=== PATIENT | female | born 1985 ===

== ENCOUNTER → 2023-07-25 | Outpatient (CLI) | payer OTHER ==
[~2023-07-25] MED LIST: BC PILLS; CEPH500 PO; CIPR500 PO; CYCL10 PO; HYDACE5 PO; IBUP800 PO; LEVFLO500 PO; PERM5TC TOP; PHENA200 PO
[2023-07-25 13:10] LABS: Source, Urine Clean Catch
[2023-07-25 15:37] LABS: Appearance, Urine Hazy (Clear); Bilirubin, Urine Neg (Neg); Blood, Urine 4+ (Neg); Color, Urine Yellow (P-Yellow); Glucose Qualitative, Urine Neg (Neg); Ketones, Urine Neg (Neg); Leukocyte Esterase, Urine Neg (Neg); Nitrite, Urine Neg (Neg); Protein, Urine 1+ (Neg); Urobilinogen, Urine NORM (Normal)
[2023-07-25 16:08] LABS: Bacteria Many /hpf; Mucus Light (0-Heavy); Red Blood Cells, Urine 0-2 /hpf (0-2); Squamous Epithelial Cells Many /hpf (Few)
== END | disposition home or self-care (01) ==
LOC: LAB 13:09 → LAB SHORT 13:09
PROVIDERS: Obstetrics & Gynecology
DX: Z01.812 Encounter for preprocedural laboratory examination (principal)
CPT/HCPCS: 81001; 87077; 87086; 87186

== ENCOUNTER 2023-07-31 14:16 | Day surgery (SDC) | payer OTHER ==
[~2023-07-31] VITALS: Ht 157.5 cm; Wt 112.5 kg
[2023-07-31] MEDS ORDERED: LABE100 PO (14:43)
[2023-07-31] MEDS ORDERED: ESCI10 PO (14:44)
[2023-07-31] MEDS ORDERED: METF500 PO (14:44)
[2023-07-31] MEDS ORDERED: PROP50 PO (14:45)
--- NOTE | 2023-07-31 16:37 | NUR ---
07/31/23 1637 Brandyn Hendricks NORMAL SALINE FLUID DEFICIT OF 250 MLS NOTED ON MYOSURE. [address] NOTIFIED. OK PER DR DIAZ.
--- NOTE | 2023-07-31 17:18 | NUR ---
07/31/23 1718 Sandy Mena IV OUT, WNL, PT TOLERATED WELL
[2023-07-31 17:19] VITALS: BP 156/94
== END 2023-07-31 17:16 | disposition home or self-care (01) ==
LOC: ORSCSDS 14:16
PROVIDERS: Obstetrics & Gynecology
PROC: 0UDB8ZX Extraction of Endometrium, Via Natural or Artificial Opening Endoscopic, Diagnostic (ICD-10-PCS; principal; 2023-07-31 15:30)
DX: N84.0 Polyp of corpus uteri (principal); I10 Essential (primary) hypertension; E11.9 Type 2 diabetes mellitus without complications; E66.9 Obesity, unspecified; Z68.42 Body mass index [BMI] 45.0-49.9, adult; Z79.899 Other long term (current) drug therapy
CPT/HCPCS: 82947; 88305; A9270; J1100; J1885; J2250; J2405; J2704; J3010

== ENCOUNTER 2024-08-15 08:35 | Emergency (ER) | payer OTHER ==
[~2024-08-15] VITALS: Ht 157.5 cm; Wt 90.7 kg
[~2024-08-15 08:35] MED LIST changes: +ESCI10 PO; +LABE100 PO; +METF500 PO; +PROP50 PO
[2024-08-15 08:56] VITALS: BP 161/112
[2024-08-15 09:30] LABS: BASOPHILS ABSOLUTE AUTO 0.05 K/mm3 (0.00-0.23); BASOPHILS PERCENT AUTO 1 % (0-2); EOSINOPHILS PERCENT AUTO 5 % (0-6); Hematocrit 38.8 % (33.0-51.0); Hemoglobin 12.1 g/dL (11.5-16.0); IMMATURE GRAN ABSOLUTE AUTO 0.02 K/mm3 (0.00-0.10); IMMATURE GRAN PERCENT AUTO 0 % (0-1); LYMPHOCYTES ABSOLUTE AUTO 1.89 K/mm3 (0.84-5.20); LYMPHOCYTES PERCENT AUTO 29 % (21-46); MONOCYTES ABSOLUTE AUTO 0.46 K/mm3 (0.16-1.47); MONOCYTES PERCENT AUTO 7 % (4-13); Mean Corpuscular HGB 22.9 pg (26.0-34.0); Mean Corpuscular HGB Conc 31.2 g/dL (31.5-36.5); Mean Corpuscular Volume 74 fL (80-100); Mean Platelet Volume 9.1 fL (9.1-12.4); NEUTROPHILS ABSOLUTE AUTO 3.86 K/mm3 (1.96-9.15); NEUTROPHILS PERCENT AUTO 59 % (41-73); Platelet Count 283 K/mm3 (150-400); RDW Coefficient Variation 17.1 % (11.7-14.2); RDW Standard Deviation 44.8 fL (35.1-46.3); Red Blood Cell Count 5.28 M/mm3 (3.80-5.20); White Blood Cell Count 6.58 K/mm3 (4.00-11.30)
[2024-08-15] MEDS ORDERED: Rho(D) Immune Globulin 300 MCG / SYR IM ONE (10:00)
[2024-08-15 10:03] LABS: Albumin, Blood 3.5 g/dL (3.4-5.0); Bilirubin, Total 0.4 mg/dL (0.1-1.0); Bun/Creatinine Ratio 18.3 (12.0-20.0); Calcium, Blood 8.3 mg/dL (8.5-10.1); Creatinine, Blood 0.65 mg/dL (0.40-1.00); Globulin, Blood 3.6 g/dL (2.2-4.0); Potassium, Blood 3.4 mmol/L (3.5-5.5); Total Protein, Blood 7.1 g/dL (6.4-8.2)
== END 2024-08-15 11:27 | disposition home or self-care (01) ==
LOC: ER 08:35
PROVIDERS: Student in an Organized Health Care Education/Training Program
DX: O03.9 Complete or unspecified spontaneous abortion without complication (principal); F41.9 Anxiety disorder, unspecified; Z79.84 Long term (current) use of oral hypoglycemic drugs; Z79.899 Other long term (current) drug therapy
CPT/HCPCS: 76801; 76817; 80053; 84702; 85025; 86900; 86901; 96372; 99284-25; J2791

== ENCOUNTER → 2024-11-09 | Outpatient (CLI) | payer OTHER ==
[2024-11-17 11:37] LABS: HPV HIGH RISK BY TMA Not Detected; HPV SOURCE Cervical
== END ==
LOC: LAB SHORT 16:04 → LAB 16:04
PROVIDERS: Advanced Practice Midwife
DX: Z01.419 Encounter for gynecological examination (general) (routine) without abnormal findings (principal)
CPT/HCPCS: 87624; G0123

== ENCOUNTER 2025-05-19 02:52 | Day surgery (SDC) | payer OTHER ==
[~2025-05-19 02:52] MED LIST changes: +INSULANI SC
[2025-05-19] MEDS ORDERED: Lidocaine HCl 4% Cream 5 GM ONE (09:35)
== END 2025-05-19 23:00 | disposition home or self-care (01) ==
LOC: WOUND 02:52
DX: S31.103A Unspecified open wound of abdominal wall, right lower quadrant without penetration into peritoneal cavity, initial encounter (principal); X58.XXXA Exposure to other specified factors, initial encounter; I10 Essential (primary) hypertension; Z87.891 Personal history of nicotine dependence; Z98.890 Other specified postprocedural states; Z90.49 Acquired absence of other specified parts of digestive tract
CPT/HCPCS: A6213; A9270; G0463

== ENCOUNTER 2025-05-24 00:57 | Day surgery (SDC) | payer OTHER ==
[2025-05-24] MEDS ORDERED: Lidocaine HCl 4% Cream 5 GM ONE (09:10)
== END 2025-05-24 23:00 | disposition home or self-care (01) ==
LOC: WOUND 00:57
DX: S31.103A Unspecified open wound of abdominal wall, right lower quadrant without penetration into peritoneal cavity, initial encounter (principal); X58.XXXA Exposure to other specified factors, initial encounter
CPT/HCPCS: A6213; A9270

== ENCOUNTER 2025-05-31 01:21 | Day surgery (SDC) | payer OTHER | END 2025-05-31 22:50 | disposition home or self-care (01) | LOC: WOUND 01:21 | DX: T81.31XD Disruption of external operation (surgical) wound, not elsewhere classified, subsequent encounter (principal); I10 Essential (primary) hypertension | CPT/HCPCS: G0463 ==